=== PATIENT | male | born 1930 | race Caucasian/White ===

== ENCOUNTER 2017-03-18 15:22 | Emergency (ER) | payer OTHER ==
[~2017-03-18] VITALS: Ht 182.9 cm; Wt 84.1 kg
[~2017-03-18 15:22] MED LIST: ALBU18HF INH; FURO-128 PO; LORA1TAB PO; LOSA100T29 PO; MESA800T PO; NITR0.4T SL; OMEG1CAP56 PO; POTA10CA42 PO; SIMV20TA PO; TAMS0.4C29 PO; WARF2.5T82 PO
[2017-03-18] MEDS ORDERED: Amiodarone 50 mg/mL 3 mL Inj ONE (15:23)
[2017-03-18] MEDS ORDERED: Midazolam 5 mg/mL 10 mL Inj ONE (15:23)
[2017-03-18] MEDS ORDERED: Magnesium Sulfate 50% 1 Gm/2 mL 10 mL Inj ONE (15:23)
[2017-03-18] MEDS ORDERED: Propofol 10 mg/mL 20 mL Inj ONE ×2 (15:23→16:05)
[2017-03-18] MEDS ORDERED: EPINEPHrine 0.1 mg/mL 10 mL Syringe ONE (15:23)
[2017-03-18 15:26] VITALS: BP 153/100; PULSE 57; RESP 16; O2SAT 96
[2017-03-18] MEDS ORDERED: fentaNYL-PF 50 mCg/mL 2 mL Inj ONE (15:26)
[2017-03-18] MEDS ORDERED: Ketamine 10 mg/mL 20 mL Inj ONE ×2 (15:29→15:58)
[2017-03-18] MEDS ORDERED: 0.9% Sodium Chloride 1,000 ML IV ONE (15:33)
--- NOTE | 2017-03-18 15:39 | ED.REPORT ---
HPI-General Illness Date of Service Mar 18, 2017 ED Provider: Mateo Fine MD Pt is a 86 year old male with a history of COPD and CHF who was brought to the ED via EMS, intubated, with concerns for respiratory failure. When the EMS arrived on the scene, he was unconsciously with O2 sats in the 60s-70s. They were able to palpate a pulse. He was given Etomidate, Succinylcholine, and Ketamine. During transport he became hypotensive and bradycardic. Pt was given epi, which was later stopped due to his rising pressure. He remains unconscious and intubated upon evaluation. No other history available at this time secondary to patient condition. Nursing Notes Stated Complaint: RESPIRATORY FAILURE Chief Complaint: Critical Care/Intubated Nursing Notes Reviewed: Yes Allergies: Coded Allergies: No Known Allergies (Unverified Allergy, Unknown, 05/12/14) Scheduled Furosemide (Lasix) 40 Mg Tablet 40 MG PO DAILY Losartan Potassium (Losartan Potassium) 100 Mg Tablet 100 MG PO DAILY Mesalamine DR (Asacol HD) 800 Mg Tablet.dr 800 MG PO BID [place]-3 Fatty Acids/Fish Oil ([place] 3 1,000 mg Softgel) 1 Each Capsule 1 EACH PO BID Potassium Chloride (Potassium Chloride) 10 Meq Capsule.er 10 MEQ PO DAILY TAKE WITH FOOD Simvastatin (Zocor) 20 Mg Tablet 20 MG PO HS Tamsulosin ER (Tamsulosin ER) 0.4 Mg Cap.er.24h 0.4 MG PO MOWEFR Warfarin Sodium (Warfarin Sodium) 2.5 Mg Tablet 2.5 MG PO DAILY Scheduled PRN Albuterol Sulfate (Ventolin HFA Inhaler) 200 Puff/18 Gm Inhaler 1 PUFF INH Q4 PRN PRN For Wheezing Lorazepam (Lorazepam) 1 Mg Tablet 0.5 MG PO HS PRN PRN For Insomnia Nitroglycerin SL (Nitrostat) 0.4 Mg Tab.subl 0.4 MG SL Q5MIN PRN PRN For Chest Pain General Time Seen by MD: 15:26 Chief Complaint Other (Respiratory Failure) Hx Obtained From: EMS Arrived By: Ambulance Sudden in Onset?: Yes Onset Occurred: Just prior to arrival Symptom Duration: Waxes and wanes Similar Sx Previous: Yes Past Medical History Past Medical History COPD CHF A-fib Smoking History Former Smoker Review of Systems Unable to Obtain ROS Intubated Physical Exam General: GCS of 3T. ill appearing, elderly male. HEENT: Right eye normal with pupils 4-3 and briskly reactive Left eye normal with pupils 4-3 and briskly reactive No obvious external signs of trauma to the scalp appreciated Neck: nontender, trachea midline Lungs: Clear to auscultation bilaterally; no adventitious sounds appreciated Chest: Stable without tenderness, no crepitus, tube in place, confirmed with chest x-ray Cardiac: Regular rate and rhythm, no peripheral edema noted Abdomen: Normal, soft, non-tender, non-distended. Bowel sounds present Pelvis: Stable Skin: Cool and dry. No rashes appreciated. Extremities: Left upper extremity grossly normal, no deformity. Right upper extremity grossly normal, no deformity. Right lower extremity grossly normal, no deformity. Left lower extremity grossly normal, no deformity. No obvious signs of trauma. Pulses: Palpable to bilateral upper and lower extremities Neuro: GCS of 3T upon arrival. Does have some muscle wasting. Subsequent examination revealed the patient would occasionally withdraw from pain. Psychiatric: Unable to assess secondary to patient's condition Vital Signs Vital Signs Date Time Temp Pulse Resp B/P Pulse Ox O2 Delivery O2 Flow Rate FiO2 03/18/17 15:26 57 16 153/100 96 Mechanical Ventilator Initial VS: Reviewed Interpretation & Diagnostics Lab Results Interpretation Result Diagram: 03/18/17 1540 03/18/17 1540 Test 03/18/17 15:40 White Blood Count 6.8th/mm3 (3.8-10.1) Red Blood Count 4.95mil/mm3 (4.40-5.80) Hemoglobin 13.1g/dL (13.8-17.2) Hematocrit 46.1% (41.0-50.0) Mean Corpuscular Volume 93.1fL (81-100) Mean Corpuscular Hemoglobin 26.5pg (27.0-35.0) Mean Corpuscular Hemoglobin Concent 28.4% (32.0-37.0) Red Cell Distribution Width 17.3% (12.3-15.4) Platelet Count 130bil/L (150-400) Neutrophils (%) (Auto) 54.7% (40-74) Lymphocytes (%) (Auto) 31.0% (14-46) Monocytes (%) (Auto) 10.4% (4-12) Eosinophils (%) (Auto) 2.3% (0-5) Basophils (%) (Auto) 1.0% (0-3) Sodium Level 141mEq/L (134-144) Potassium Level 4.4mEq/L (3.5-5.2) Chloride Level 96mEq/L (97-108) Carbon Dioxide Level 29mmol/L (18-29) Blood Urea Nitrogen 32mg/dL (8-27) Creatinine 1.21mg/dL (0.76-1.27) Estimat Glomerular Filtration Rate 60mL/min (>59) Glucose Level 144mg/dL (60-99) Lactic Acid Level 3.8mmol/L (0.4-2.0) Calcium Level 8.4mg/dL (8.5-10.1) Magnesium Level 2.0mg/dL (1.6-2.6) Total Bilirubin 1.1mg/dL (0.0-1.2) Aspartate Amino Transf (AST/SGOT) 18U/L (0-50) Alanine Aminotransferase (ALT/SGPT) 9U/L (0-44) Alkaline Phosphatase 139U/L (25-160) Troponin T 0.033ug/L (0.0-0.011) Pro-B-Type Natriuretic Peptide 5140pg/mL (0-486) Total Protein 6.3g/dL (6.4-8.4) Albumin 2.9g/dL (3.4-5.0) Alcohols < 10mg/dL (0-10) ECG Interpretation ECG Interpretation: EKG: SR - 95 Difficult to asses secondary to artifact, clearly prolonged QTC identified. Time: 15:50 Interpreted by: ED physician ECG Interpretation: A-fib - 82 RBBB Time: 16:20 Interpreted by: ED physician X-Ray Chest Interpretation Chest Xray Interpretation: IMPRESSION: 1. Cardiomegaly with moderate increased pulmonary vascular markings may represent developing pulmonary edema. Please correlate clinically. 2. Small to moderate-sized bilateral pleural effusions and associated atelectasis. Superimposed pneumonia is difficult to exclude. 3. Emphysematous changes. No pneumothorax. 4. Appropriately positioned endotracheal tube. Dictated by: Castillo Lee M.D. on 03/18/2017 at 15:01 View: Portable, 1 view Interpretation / Wet Read by: Interpret - Radiologist Re-Eval/Medical Decision Med Decision/Clinical Course In summary, 86-year-old male presenting to the ED for evaluation after collapsing shortly prior to arrival. History limited upon patient's arrival secondary to patient condition. EMS stated that he was unconscious with O2 sats in the 60s to 70s when they arrived, but did have a pulse. Upon arrival here, he is intubated with somewhat soft pressures and bradycardic. They gave him epinephrine prior to arrival, however stopped after his blood pressure came up. Unclear etiology for the patient's collapse and unresponsiveness, however with his history of COPD and CHF, respiratory or cardiac etiology is favored. Chest x-ray with some moderate pulmonary vascular markings; lungs did appear to be clear on initial evaluation, with some decreased movement, while present. While the patient was on the way to the CT scanner to obtain a head CT, nursing staff noted that he had lost a pulse and CPR was initiated. Please see CPR code sheet for full details. Initial QTC noted to be prolonged; patient given 2 g of magnesium during code. He was also noted to be in V. tach on the monitor and was shocked with return of spontaneous circulation. Epinephrine drip started. He did have some twitching after this and was some concern from nursing staff that he may be having a seizure, so Versed and propofol were given , titrated with epinephrine to attempt to maintain blood pressure. I contacted cardiology given his return of spontaneous circulation and concern for a primary cardiac etiology with his ventricular tachycardia; please see below. They did not feel that he was a good candidate for the director geophysical laboratory at this time. He did lose pulses again, however after an additional round of CPR had return of spontaneous circulation again. By this time, the family had arrived and a subclavian line had been placed. Family stated upon arrival that they did not want to pursue aggressive resuscitation as their father would not have wanted this, including not wanting to have a breathing tube at any time. By this time , the patient had continued to become more and more hypotensive despite epinephrine. The family had asked to not initiate CPR if the patient were to lose pulses again. An extensive discussion was had with the family, and it was determined that the patient would remain comfort care with no further interventions whatsoever, including diagnostic testing. Shortly thereafter, at 4:53 PM, I was called to the room. The patient had no pulses, no cardiac activity, and the patient was declared . Source of Hx: Old records, EMS Time of Eval: 15:49 Re-Evaluation/Progress Note: On the way to CT, his pulse and pressure began to drop. He was rushed back to his room and was stabilized. Seizure acitivity noted. Time of Eval: 16:12 Re-Evaluation/Progress Note: V-tachy was seen on the monitor, chest compressions began. Consultation #1: Referral / Consult Name: Dejan Garcia MD Consulted With: Cardiology Call Returned at: 16:26 Information Systems Security Analyst: Will see patient, Agrees with eval, Agrees with plan Consultation #2: Referral / Consult Name: Torres Bailey MD Consulted With: Cardiology Call Returned at: 16:30 Information Systems Security Analyst: Will see patient, Agrees with eval, Agrees with plan Discharge & Departure Primary Impression: Cardiac arrest Additional Impressions: Respiratory arrest Respiratory failure Chronicity: acute Respiratory failure complication: unspecified whether with hypoxia or hypercapnia Qualified Code: J96.00 - Acute respiratory failure , unspecified whether with hypoxia or hypercapnia Disposition: Discharge Condition All VS Reviewed: Yes Condition: (Time of : 16:53) Referrals: Huma Sanders MD (PCP) Crit Care Except Billable Proc Time Spent: 105-134 minutes Services Performed: Patient management by me, Time spent at bedside, Reviewing test results, Reviewing imaging, Discussing patient care, Documentation in record, Time with fam/surrogate Critical Care Notes: Please see MDM. Estrella Attestation Portions of this note were transcribed by Kayla Soliman. I, Dr. Fine personally performed the history, physical exam and medical decision-making; I reviewed and confirmed the accuracy of the information in the transcribed note. Signed by: Delores Owen, 03/18/2017 15:23 copies to: Huma Sanders MD, William B MD Mar 18, 2017 15:38 SERVANDO SOLIMAN Mar 18, 2017 15:44
[2017-03-18] MEDS ORDERED: fentaNYL 2,500 mCg/250 mL IV Premix IV SCH (15:40)
[2017-03-18] MEDS ORDERED: Midazolam 100 mg/100 mL Premix IV PRN (15:40)
[2017-03-18 15:44] LABS: EOSINOPHILS % (AUTO) 2.3 % (0-5)
[2017-03-18 15:49] LABS: MONOCYTES % (AUTO) 10.4 % (4-12); Mean Corpuscular Hemoglobin 26.5 pg (27.0-35.0); Mean Corpuscular Volume 93.1 fL (81-100); NEUTROPHILS % (AUTO) 54.7 % (40-74); Platelet Count 130 bil/L (150-400)
[2017-03-18] MEDS ORDERED: EPINEPHrine 10,000 mCg/250 mL NS IV SCH ×2 (16:00)
[2017-03-18] MEDS ORDERED: Propofol 10,000 mCg/mL 100 mL Inj ONE (16:05)
--- NOTE | 2017-03-18 16:05 | DRSVH ---
PROCEDURE: X-RAY CHEST ONE VIEW, PORTABLE ([id number]) INDICATIONS: sudden collapse, eval ETT placement TECHNIQUE: One view of the chest was acquired. COMPARISON: [facility], CT, CHEST ANGIO-PE, 02/03/2015, 15:16. FINDINGS: Surgical changes and devices: An endotracheal tube is identified with the tip positioned approximatel y 2 cm above the level of the rosy. Lungs and pleura: Blunting of the bilateral costophrenic angles is identified with alveolar and inter stitial markings noted at the lung bases. Relative lucency within the lung apices is compatible with the patient's previously seen emphysematous changes of the lungs. No definite pneumothorax is appre ciated. Mediastinum: Mediastinal contours appear normal. Heart size is enlarged. There is aortic atheroscl erosis. The pulmonary vasculature is increased. Bones and chest wall: No suspicious bony lesions. Overlying soft tissues appear unremarkable. IMPRESSION: 1. Cardiomegaly with moderate increased pulmonary vascular markings may represent developing pulmona ry edema. Please correlate clinically. 2. Small to moderate-sized bilateral pleural effusions and associated atelectasis. Superimposed pne umonia is difficult to exclude. 3. Emphysematous changes. No pneumothorax. 4. Appropriately positioned endotracheal tube. Dictated by: Castillo Lee M.D. on 03/18/2017 at 15:01 Approved by: Castillo Lee M.D. on 03/18/2017 at 15:03
[2017-03-18 16:06] LABS: TROPONIN T 0.033 ug/L (0.0-0.011)
--- NOTE | 2017-03-18 16:36 | DRSVH ---
PROCEDURE: X-RAY CHEST ONE VIEW, PORTABLE ([id number]) INDICATIONS: eval CVC placement, delta TECHNIQUE: One view of the chest was acquired. COMPARISON: [facility], CR, XR CHEST 1VW (PORTABLE), 03/18/2017, 15:11. FINDINGS: Surgical changes and devices: Right subclavian central venous catheter with the tip projecting in the lower SVC. Endotracheal tube with the tip seen approximately 5 cm above the rosy. Lungs and pleura: Bilateral small pleural effusions with adjacent atelectasis. Overall unchanged appe arance of 03/18/17. No pneumothorax. Patchy bibasal opacities also grossly unchanged. No definite new focal consolidation. Mediastinum: Cardiac silhouette and mediastinal contours are stable. Bones and chest wall: No suspicious bony lesions. Overlying soft tissues appear unremarkable. IMPRESSION: No definite interval change since 03/18/17. Bilateral pleural effusions with adjacent atel ectasis and patchy bibasilar opacities as before. Support equipment as detailed above. No pneumothorax Dictated by: Gerson Betancourt M.D. on 03/18/2017 at 16:32 Approved by: Gerson Betancourt M.D. on 03/18/2017 at 16:34
--- NOTE | 2017-03-18 16:49 | PCM.EDPN ---
ED Note Date of Service Mar 18, 2017 Procedures Central Line Placement : Central Line Placement Note: Placed to assist Dr Fine in his care for this ER patient Time: 16:00 Consent / Setup / Site Prep: No consent - emergent Skin Preparation Agent: [place]urclens Local Anesthesia: Lidocaine 1% Procedural Sedation/Analgesia: Analgesia: Other (intubated, sedated) Side / Location / Ultrasound: Subclavian right (emergent conditions. In C collar, no safe access to neck so R SC site chosen) Catheter / Lumen / Technique: Triple lumen Central Line Tip Location: Cath tip good position in the SVC Post-Procedure / Complications: Dressing placed, CXR neg for pneumothorax, Not stable post-procedure (due to underlying issues that have lead to central line placement) Maggie Awan MD Mar 18, 2017 16:49
== END 2017-03-18 16:53 | disposition expired ==
LOC: SED 15:22
DX: I46.9 Cardiac arrest, cause unspecified (principal); J96.00 Acute respiratory failure, unspecified whether with hypoxia or hypercapnia; J44.9 Chronic obstructive pulmonary disease, unspecified; I50.9 Heart failure, unspecified; Z87.891 Personal history of nicotine dependence; Z79.01 Long term (current) use of anticoagulants
CPT/HCPCS: 36415; 36556; 71010; 80053; 82948; 83605; 83735; 83880; 84484; 85025; 92950; 93005; 94002; 94799; 99291; 99292; G0480; J0171; J0282; J2250; J3475